=== PATIENT | female | born 1955 | race Caucasian/White ===

== ENCOUNTER 2021-09-07 15:45 | Inpatient (IN) | payer OTHER, SELFPAY ==
[~2021-09-07] VITALS: Ht 154.9 cm; Wt 89.6 kg
[2021-09-07 16:02] VITALS: BP_SYST 191
[2021-09-07] MEDS ORDERED: NS 500 ML IV ONE (16:30)
[2021-09-07] MEDS ORDERED: IOHEXOL 350 mgI/mL, 150 ML INFUS..BTL IV ONE (16:33)
[2021-09-07 17:15] LABS: BASOPHILS # (AUTO) 0.1 K/uL (0.0-0.2); BASOPHILS % (AUTO) 1.2 % (0.0-2.0); EOSINOPHILS # (AUTO) 0.2 K/uL (0.0-0.4); LYMPHOCYTES # (AUTO) 2.7 K/uL (1.0-5.5); LYMPHOCYTES % (AUTO) 37.6 % (20.5-51.5); MEAN CORPUSCULAR HEMOGLOBIN 31 pg (27-31); MEAN CORPUSCULAR HGB CONC 33 % (32-36); MEAN CORPUSCULAR VOLUME 92 fL (79.0-98.0); MONOCYTES # (AUTO) 0.7 K/uL (0.0-1.0); MONOCYTES % (AUTO) 10.1 % (1.7-9.3); NEUTROPHILS # (AUTO) 3.5 K/uL (1.8-7.7); NEUTROPHILS % (AUTO) 48.1 % (40.0-70.0); PLATELET COUNT (AUTO) 191 K/uL (130-430); RED BLOOD CELL COUNT(AUTO) 4.59 MIL/uL (4.2-6.2); RED CELL DISTRIBUTION WIDTH 13.1 % (9.0-15.0); WHITE BLOOD COUNT (AUTO) 7.3 K/uL (4.8-10.8)
[2021-09-07 17:28] LABS: CALCIUM 9.6 mg/dL (8.4-11.0); CREATININE 1.26 mg/dL (0.55-1.30); POTASSIUM 4.1 mmol/L (3.5-5.1)
[2021-09-07] MEDS ORDERED: DIPHENHYDRAMINE INJ 50 MG/ML VIAL IVP ONE (17:30)
[2021-09-07 17:34] LABS: ALBUMIN 3.5 g/dL (3.4-4.8); TOTAL BILIRUBIN 0.4 mg/dL (0.0-1.0)
[2021-09-07 17:37] LABS: INR 0.9 (0.8-1.2); PROTHROMBIN TIME 9.9 SECS (9.5-12.5)
[2021-09-07] MEDS ORDERED: hydrALAZINE HCL 20 MG/ML VIAL IVP ONE (18:30)
[2021-09-07] MEDS ORDERED: INSU100V9 SQ (18:58)
[2021-09-07] MEDS ORDERED: METO25TA6 PO (18:58)
[2021-09-07] MEDS ORDERED: SSNOVOLOG SUBCUT (18:58)
[2021-09-07] MEDS ORDERED: LISI40TA13 PO (18:58)
[2021-09-07] MEDS ORDERED: ASA81 PO (18:58)
[2021-09-07] MEDS ORDERED: LIP40 PO (18:58)
[2021-09-07] MEDS: NACL 0.9% 1,000 ML IV SCH (22:15)
[2021-09-07] MEDS: INSULIN REGULAR, HUMAN 100 UNITS/ML, 10 ML VIAL (humuLIN R) SUBCUT PRN (22:22)
[2021-09-08] VITALS: BP_SYST 149
[2021-09-08 01:07] VITALS: BP_SYST 149
[2021-09-08] MEDS: NACL 0.9% 1,000 ML IV SCH (05:30)
[2021-09-08] MEDS: INSULIN REGULAR, HUMAN 100 UNITS/ML, 10 ML VIAL (humuLIN R) SUBCUT PRN ×4 (05:37→22:55)
[2021-09-08 07:04] LABS: BASOPHILS # (AUTO) 0.1 K/uL (0.0-0.2); BASOPHILS % (AUTO) 0.9 % (0.0-2.0); EOSINOPHILS # (AUTO) 0.3 K/uL (0.0-0.4); EOSINOPHILS % (AUTO) 4.2 % (0.0-4.0); HEMATOCRIT 41.4 % (36-48); HEMOGLOBIN 13.8 g/dL (12.0-16.0); LYMPHOCYTES # (AUTO) 2.8 K/uL (1.0-5.5); LYMPHOCYTES % (AUTO) 42.3 % (20.5-51.5); MEAN CORPUSCULAR HEMOGLOBIN 31 pg (27-31); MEAN CORPUSCULAR HGB CONC 33 % (32-36); MEAN CORPUSCULAR VOLUME 92 fL (79.0-98.0); MONOCYTES # (AUTO) 0.8 K/uL (0.0-1.0); MONOCYTES % (AUTO) 11.6 % (1.7-9.3); NEUTROPHILS # (AUTO) 2.7 K/uL (1.8-7.7); PLATELET COUNT (AUTO) 180 K/uL (130-430); RED BLOOD CELL COUNT(AUTO) 4.51 MIL/uL (4.2-6.2); RED CELL DISTRIBUTION WIDTH 12.9 % (9.0-15.0); WHITE BLOOD COUNT (AUTO) 6.5 K/uL (4.8-10.8)
[2021-09-08 07:50] LABS: CALCIUM 8.7 mg/dL (8.4-11.0); CREATININE 1.27 mg/dL (0.55-1.30); POTASSIUM 4.1 mmol/L (3.5-5.1)
[2021-09-08 08:00] VITALS: BP_SYST 156
[2021-09-08] MEDS ORDERED: METOPROLOL TARTRATE 25 MG TABLET PO SCH (09:00)
[2021-09-08] MEDS ORDERED: DEXTROSE 50% JECT 50 ML DISP.SYRIN IVP PRN (09:45)
[2021-09-08 12:09] VITALS: BP_SYST 132
[2021-09-08] MEDS ORDERED: REGADENOSON 0.4 MG/5 ML SYRINGE IVP ONE (14:00)
[2021-09-08] MEDS ORDERED: ATORVASTATIN 20 MG TABLET PO ONE (14:30)
[2021-09-08] MEDS ORDERED: METOPROLOL TARTRATE 25 MG TABLET PO ONE (14:30)
[2021-09-08] MEDS ORDERED: lisinopriL 20 MG TABLET PO ONE (14:30)
[2021-09-08] MEDS ORDERED: ASPIRIN 81 MG TAB.CHEW PO ONE (14:30)
[2021-09-08 16:00] VITALS: BP_SYST 148
[2021-09-08 20:00] VITALS: BP_SYST 157
[2021-09-08] MEDS ORDERED: ACETAMINOPHEN 325 MG TABLET PO ONE (22:00)
[2021-09-08] MEDS ORDERED: ZOLPIDEM TARTRATE 5 MG TABLET PO ONE (22:00)
[2021-09-08] MEDS: METOPROLOL TARTRATE 25 MG TABLET PO SCH (22:44)
[2021-09-09] VITALS: BP_SYST 153
[2021-09-09] MEDS: INSULIN REGULAR, HUMAN 100 UNITS/ML, 10 ML VIAL (humuLIN R) SUBCUT PRN (05:36)
[2021-09-09] MEDS: METOPROLOL TARTRATE 25 MG TABLET PO SCH (08:22)
[2021-09-09 08:39] LABS: ALBUMIN 3.3 g/dL (3.4-4.8); CALCIUM 8.9 mg/dL (8.4-11.0); CREATININE 0.98 mg/dL (0.55-1.30); POTASSIUM 4.6 mmol/L (3.5-5.1); THYROID STIMULATING HORMONE 2.18 uIu/mL (0.36-3.74); TOTAL BILIRUBIN 0.4 mg/dL (0.0-1.0)
[2021-09-09] MEDS ORDERED: ATORVASTATIN 20 MG TABLET PO SCH (09:00)
[2021-09-09] MEDS ORDERED: INSULIN GLARGINE 100 UNITS/ML 10 ML VIAL SUBCUT SCH (09:00)
[2021-09-09] MEDS ORDERED: lisinopriL 20 MG TABLET PO SCH (09:00)
[2021-09-09] MEDS ORDERED: ASPIRIN 81 MG TAB.CHEW PO SCH (09:00)
[2021-09-09 09:12] VITALS: BP_SYST 140
[2021-09-09 09:14] VITALS: BP_SYST 140
[2021-09-09 11:24] VITALS: BP_SYST 140
== END 2021-09-09 11:45 | disposition home or self-care (01) | DRG 552 ==
LOC: SED 15:45 → STU 19:55
PROVIDERS: ADMIT Internal Medicine Hospice and Palliative Medicine; ATTEND Internal Medicine Hospice and Palliative Medicine
DX: M54.2 Cervicalgia (principal); I25.10 Atherosclerotic heart disease of native coronary artery without angina pectoris; I10 Essential (primary) hypertension; E11.9 Type 2 diabetes mellitus without complications; Z20.822 Contact with and (suspected) exposure to COVID-19; E11.319 Type 2 diabetes mellitus with unspecified diabetic retinopathy without macular edema; Z98.61 Coronary angioplasty status
CPT/HCPCS: 36415; 70450-TC; 70496; 71045; 76376; 80048; 80053; 80061; 82962; 83880; 84443; 84484; 85025; 85610-TC; 85730-TC; 93005; 93017; 93306; 96361; 96374; 96375; 99285; G0378; J0360; J1200; J1815; J2785; Q9967